=== PATIENT | female | born 1935 | race Caucasian/White ===

== ENCOUNTER 2018-06-08 12:18 | Emergency (ER) | payer OTHER ==
--- NOTE | 2018-06-08 12:25 | PDOC ---
History of Present Illness - General Chief Complaint: Laceration Stated Complaint: I CUT MY LEG Time Seen by Provider: 06/08/18 12:23 - History of Present Illness Initial Comments: 06/08/18 12:41 The patient is an 83 year old female with a PMH of Atrial Fibrilation (on Warfarin), CAD (s/p [place]), Rheumatoid Arthritis, Valve replacement x2, Essential tremors who presents to our ED c/o R leg wound. Patient states she was getting out of the car when she looked around and got distracted shutting the car door on her R leg. Denies any fall, head trauma, LOC. Was ambulatory immediately afterward. Cannot recall the date of her last Tetanus shot. Patient denies chest pain, headache or dizziness. Patient denies fever, chills, abdominal pain, nausea, vomit, diarrhea or constipation. Patient denies dysuria, frequency, urgency or hematuria. Patient denies sick contacts or recent travel. NKDA Surgical: Valve Replacement Social: lifetime non-smoker PMD: As per EMR, patient last evaluated in our ED 04/2014 for thumb laceration. No record of Boostrix at that time. Past History - Past Medical History Allergies/Adverse Reactions: Allergies Allergy/AdvReac Type Severity Reaction Status Date / Time No Known Allergies Allergy Verified 06/08/18 12:19 Home Medications: Ambulatory Orders Propranolol HCl 05/15/14 Simponi 05/15/14 Simvastatin 05/15/14 Warfarin Sodium [Coumadin] 3 mg PO DAILY 05/15/14 Cardiac Disorders: Yes (AFIB) - Immunization History Immunization Up to Date: No - Suicide/Smoking/Psychosocial Hx Smoking History: Unknown if ever smoked Have you smoked in the past 12 months: No Hx Alcohol Use: No Substance Use Type: None Review of Systems - Review of Systems Constitutional: No: Chills, Fever HEENTM: No: Recent change in vision Respiratory: No: Cough, Shortness of Breath Cardiac (ROS): No: Chest Pain, Lightheadedness, Palpitations, Syncope ABD/GI: No: Constipated, Diarrhea, Nausea, Vomiting *Physical Exam - Physical Exam General Appearance: Yes: Nourished, Thin HEENT: positive: Normal Voice, Hearing Grossly Normal Neck: positive: Trachea midline, Supple Respiratory/Chest: positive: Lungs Clear, Normal Breath Sounds Cardiovascular: positive: S1, S2. negative: JVD Vascular Pulses: Dorsalis-Pedis (R): 2+ Gastrointestinal/Abdominal: positive: Soft. negative: Tender Extremity: positive: Normal Capillary Refill, Other (RLE: R lateral barajas 6 cm laceration with exposed muscle and extending abrasion; 2+ DP pulse, sensation intact) Integumentary: positive: Normal Color, Warm Neurologic: positive: Fully Oriented, Alert Procedures - Laceration/Wound Repair Right Lateral Leg Wound Length: 5.0 to 7.5 cm Wound Explored: no foreign body present Wound's Depth, Shape: into muscle Irrigated w/ Saline: Yes Anesthesia: 1% Lidocaine Wound Debrided: minimal Wound Repaired With: Sutures Suture Size/Type: 3:0 Number of Sutures: 9 Medical Decision Making - Medical Decision Making 06/08/18 12:43 83 year old female with RLE laceration w/muscle exposure. 2+ DP pulse, sensation intact. Unknown tetanus history. 06/08/18 13:59 Boostrix Laceration repaired as documented in procedure section of EMR. Patient tolerated procedure well. Instructed to return to ED for wound check/suture removal in 9-11 days. I discussed the physical exam findings, ancillary test results and final diagnoses with the patient. I answered all of the patient's questions. The patient was satisfied with the care received and felt comfortable with the discharge plan and treatment plan. The patient will return to the Emergency Department with any new, persistent or worsening symptoms. *DC/Admit/Observation/Transfer Diagnosis at time of Disposition: Laceration - Discharge Dispostion Disposition: HOME Condition at time of disposition: Good Decision to Admit order: No - Referrals - Patient Instructions Printed Discharge Instructions: DI for Laceration Repair Additional Instructions: You can take Tylenol (up to 3000 mg daily) for your pain. Return to the Emergency Department between June 17- for evaluation of your sutures and possible removal. Return to the Emergency Department before that time for any new/worsening/ concerning symptoms including lose sutures, severe pain, pus. - Post Discharge Activity
[2018-06-08 12:28] VITALS: BP 140/72; PULSE 80; TEMP 97.3; BMI 19.3
[2018-06-08] MEDS ORDERED: DIPHTH,PERTUSS(ACELL),TET 0.5 ML DISP.SYRIN IM ONE ×2 (12:41→14:00)
--- NOTE | 2018-06-08 12:47 | PDOC ---
Attending Attestation - Resident Resident Name: Wendy Bardales - ED Attending Attestation I have performed the following: I have examined & evaluated the patient, The case was reviewed & discussed with the resident, I agree w/resident's findings & plan, Exceptions are as noted - HPI HPI: 83 yo F presents with R lower leg laceration after accidentally closing a car door on it. She was trying to exit the car and was not looking when she closed the door. No other injuries. - Physicial Exam PE: GENERAL: Awake, alert, and fully oriented, in no acute distress HEAD: No signs of trauma EYES: PERRLA, EOMI, sclera anicteric, conjunctiva clear ENT: Auricles normal inspection, hearing grossly normal, nares patent, oropharynx clear without exudates. Moist mucosa NECK: Normal ROM, supple, no lymphadenopathy, JVD, or masses LUNGS: Breath sounds equal, clear to auscultation bilaterally. No wheezes, and no crackles HEART: Regular rate and rhythm, normal S1 and S2, no murmurs, rubs or gallops ABDOMEN: Soft, nontender, normoactive bowel sounds. No guarding, no rebound. No masses EXTREMITIES: Normal range of motion, no edema. No clubbing or cyanosis. No cords, erythema, or tenderness NEUROLOGICAL: Cranial nerves II through XII grossly intact. Normal speech, normal gait. Motor and sensation intact SKIN: Warm, Dry, normal turgor. +6cm irregular laceration with oozing blood, no arterial bleeding. +Devitalized skin, with exposure of subcutaneous fat. - Medical Decision Making Repair was done by removing the devitalized skin, then closing the exposed dermis to cover the subcutaneous fat. +Hemostasis. Tdap given in ED. Stable for DC home.
== END 2018-06-08 14:08 | disposition home or self-care (01) ==
LOC: FER 12:18
PROC: 0HQKXZZ Repair Right Lower Leg Skin, External Approach (ICD-10-PCS; principal; 2018-06-08)
DX: S81.811A Laceration without foreign body, right lower leg, initial encounter (principal); I48.91 Unspecified atrial fibrillation; Z79.01 Long term (current) use of anticoagulants; M06.9 Rheumatoid arthritis, unspecified; W22.8XXA Striking against or struck by other objects, initial encounter; Y93.89 Activity, other specified; Y92.89 Other specified places as the place of occurrence of the external cause
CPT/HCPCS: 90715; 99282-25

== ENCOUNTER 2018-06-18 10:26 | Emergency (ER) | payer OTHER ==
[2018-06-18 10:31] VITALS: BP 129/58; PULSE 76; TEMP 97.9; BMI 19.5
--- NOTE | 2018-06-18 11:04 | PDOC ---
Suture Removal/Wound Check HPI - History of Present Illness Chief Complaint: Suture/Staple Removal(Here) Stated Complaint: suture removal Time Seen by Provider: 06/18/18 10:34 History Source: Yes: Patient Exam Limitations: Yes: No Limitations Treated at: [facility] ED - Previous ED Treatment Type of procedure performed on last visit: Yes: Laceration Repair - Onset of Previous Treatment Comment:: 06/18/18 10:59 83 F with h/o Atrial Fibrilation (on Warfarin), CAD (s/p [place]), Rheumatoid Arthritis, Valve replacement x2, Essential tremors presenting to ED for suture removal. Pt sustained laceration last week after closing car door on her R leg. Pt states that a few days after the lac repair, the skin adjacent to the wound became darkened. Pt denies any redness, swelling, warmth, or drainage. Denies F/ C. Past History - Past Medical History Allergies/Adverse Reactions: Allergies Allergy/AdvReac Type Severity Reaction Status Date / Time No Known Allergies Allergy Verified 06/18/18 10:27 Home Medications: Ambulatory Orders Propranolol HCl 05/15/14 Simponi 05/15/14 Simvastatin 05/15/14 Warfarin Sodium [Coumadin] 3 mg PO DAILY 05/15/14 Cardiac Disorders: Yes (AFIB) COPD: No - Immunization History Immunization Up to Date: No - Suicide/Smoking/Psychosocial Hx Smoking History: Unknown if ever smoked Have you smoked in the past 12 months: No Hx Alcohol Use: Yes Drug/Substance Use Hx: No Substance Use Type: None *Review of Systems - Review of Systems Comments:: 06/18/18 11:00 "GENERAL/CONSTITUTIONAL: No fever or chills. No weakness. HEAD, EYES, EARS, NOSE AND THROAT: No change in vision. No ear pain or discharge. No sore throat. CARDIOVASCULAR: No chest pain, no shortness of breath, no loss of consciousness RESPIRATORY: No cough, wheezing, or hemoptysis. GASTROINTESTINAL: No nausea, vomiting, diarrhea or constipation. GENITOURINARY: No dysuria, frequency, or change in urination. MUSCULOSKELETAL: No joint or muscle swelling or pain. No neck or back pain. SKIN: No redness, no swelling, no pain NEUROLOGIC: No vertigo, no change in strength/sensation. ENDOCRINE: No increased thirst. No abnormal weight change. HEMATOLOGIC/LYMPHATIC: No anemia, easy bleeding, or history of blood clots. ALLERGIC/IMMUNOLOGIC: No hives or skin allergy. *Physical Exam - Vital Signs Last Vital Signs Temp Pulse Resp BP Pulse Ox 97.9 F 76 16 129/58 L 98 06/18/18 10:27 06/18/18 10:27 06/18/18 10:27 06/18/18 10:27 06/18/18 10:27 - Physical Exam Comments: 06/18/18 11:01 "GENERAL: Awake, alert, and fully oriented, in no acute distress. HEAD: No signs of trauma EYES: PERRLA, EOMI, sclera anicteric, conjunctiva clear ENT: Auricles normal inspection, hearing grossly normal, nares patent, oropharynx clear without exudates. Moist mucosa NECK: Nontender, no stepoffs, Normal ROM, supple, no lymphadenopathy, JVD, or masses LUNGS: Breath sounds equal, clear to auscultation bilaterally. No wheezes, and no crackles HEART: Regular rate and rhythm, normal S1 and S2, no murmurs, rubs or gallops ABDOMEN: Soft, nontender, normoactive bowel sounds. No guarding, no rebound. No masses EXTREMITIES: Normal range of motion, no edema. No clubbing or cyanosis. No cords, erythema, or tenderness NEUROLOGICAL: Cranial nerves II through XII intact. 5/5 strength and sensation in all extremities, Normal speech, normal gait, normal cerebellar function SKIN: RLE with well healing laceration. 4cm area of skin adjacent to laceration devitalized. 7 sutures visualized, with 2 additional healed puncture wounds Moderate Sedation - Procedure Monitoring Vital Signs: Procedure Monitoring Vital Signs Temperature 97.9 F 06/18/18 10:27 Pulse Rate 76 06/18/18 10:27 Respiratory Rate 16 06/18/18 10:27 Blood Pressure 129/58 L 06/18/18 10:27 O2 Sat by Pulse Oximetry (%) 98 06/18/18 10:27 Medical Decision Making - Medical Decision Making 06/18/18 11:02 83 F here for suture removal. No signs of infection. Pt with blackened skin adjacent to laceration, likely 2/2 suturing devitalized skin flap. - 7 sutures removed (9 sutures reportedly placed initially, but there are 2 puncture wounds along laceration where sutures likely fell out) - Wound dressed Pt is well appearing, with normal vitals. Clinically stable for DC at this time. I discussed the physical exam findings, ancillary test results and final diagnoses with the patient. I answered all of the patient's questions. The patient was satisfied with the care received and felt comfortable with the discharge plan and treatment plan. The patient agrees to follow up with the primary care physician within 24-72 hours. *DC/Admit/Observation/Transfer Diagnosis at time of Disposition: Suture Removal from skin - Discharge Dispostion Disposition: HOME Condition at time of disposition: Stable - Referrals - Patient Instructions Printed Discharge Instructions: DI for Suture Removal Additional Instructions: Apply bacitracin to your wound twice daily until the open areas have healed. If you experience any worsening redness, swelling, pain, drainage, bleeding, or any other concerning symptoms, return to the ER immediately. - Post Discharge Activity - Attestations Physician Attestion: 06/18/18 11:04 I, Dr. Ismael Ceron MD, attest that this document has been prepared under my direction and personally reviewed by me in its entirety. I further attest, that it accurately reflects all work, treatment, procedures and medical decision -making performed by me.
== END 2018-06-18 11:11 | disposition home or self-care (01) ==
LOC: FER 10:26
DX: Z48.02 Encounter for removal of sutures (principal)
CPT/HCPCS: 99281-25